=== PATIENT | female | born 1990 | race Caucasian/White ===

== ENCOUNTER 2016-07-24 00:11 | Emergency (ER) | payer OTHER ==
[2016-07-24 00:26] VITALS: BP 113/53
== END 2016-07-24 02:12 | disposition left against medical advice (07) ==
LOC: ED 00:11
DX: Z53.21 Procedure and treatment not carried out due to patient leaving prior to being seen by health care provider (principal)

== ENCOUNTER 2017-01-04 18:49 | Emergency (ER) | payer OTHER ==
[2017-01-04 21:18] VITALS: BP 110/73
== END 2017-01-04 21:18 | disposition home or self-care (01) ==
LOC: ED 18:49
DX: S39.012A Strain of muscle, fascia and tendon of lower back, initial encounter (principal); N39.0 Urinary tract infection, site not specified; X58.XXXA Exposure to other specified factors, initial encounter; Y93.89 Activity, other specified; Y99.8 Other external cause status; Y92.89 Other specified places as the place of occurrence of the external cause
CPT/HCPCS: J1885